=== PATIENT | female | born 1970 | race African-American/Black ===

== ENCOUNTER 2020-01-04 19:17 | Emergency (ER) | payer SELFPAY ==
[2020-01-04 19:26] VITALS: BP 135/76
[2020-01-04] MEDS ORDERED: KETOROLAC TROMETHAMINE 60 MG/2 ML SDV IM ONE (19:37)
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
== END 2020-01-04 19:51 | disposition home or self-care (01) ==
LOC: ER 19:17
DX: S16.1XXA Strain of muscle, fascia and tendon at neck level, initial encounter (principal); S29.012A Strain of muscle and tendon of back wall of thorax, initial encounter; V49.50XA Passenger injured in collision with unspecified motor vehicles in traffic accident, initial encounter
CPT/HCPCS: 99284; 96372; J1885